=== PATIENT | female | born 1970 ===

== ENCOUNTER 2017-06-14 14:09 | Emergency (ER) | payer OTHER ==
[2017-06-14 14:43] VITALS: BP 153/76
--- NOTE | 2017-06-14 15:02 | UC ---
Complaint Female HPI - HPI Summary HPI Summary: Patient to the urgent care with complaints of urgency frequency burning with urination. Denies fevers chills nausea vomiting - History Of Current Complaint Chief Complaint: [facility]CGU Stated Complaint: URINARY COMPLAINT Time Seen by Provider: 06/14/17 14:40 Hx Obtained From: Patient ?: No - hysterectomy Onset/Duration: Sudden Onset, Lasting Days - 7 Timing: Constant Severity Initially: Mild Severity Currently: Moderate Pain Intensity: 7 Pain Scale Used: 0-10 Numeric Character: Burning Aggravating Factor(s): Urination Alleviating Factor(s): Nothing Associated Signs And Symptoms: Positive: Negative - Allergies/Home Medications Allergies/Adverse Reactions: Allergies Allergy/AdvReac Type Severity Reaction Status Date / Time No Known Allergies Allergy Verified 06/14/17 14:43 Home Medications: Home Medications Acetaminophen TAB* [Tylenol TAB*] 1,500 mg PO Q4H PRN 06/14/17 [History Confirmed 06/14/17] PMH/Surg Hx/FS Hx/Imm Hx Previously Healthy: Yes - Surgical History Surgical History: Yes Surgery Procedure, Year, and Place: Hysterectomy. Gall bladder. Tubes tied - Family History Known Family History: Positive: None - Social History Occupation: Employed Full-time Lives: With Family Alcohol Use: Occasionally Substance Use Type: None Smoking Status (MU): Former Smoker When Did the Patient Quit Smoking/Using Tobacco: 2002 Review of Systems Constitutional: Negative Skin: Negative Eyes: Negative ENT: Negative Respiratory: Negative Cardiovascular: Negative Gastrointestinal: Negative Genitourinary: Dysuria, Frequency, Urgency Motor: Negative Neurovascular: Negative Musculoskeletal: Negative Neurological: Negative Psychological: Negative Is Patient Immunocompromised?: No All Other Systems Reviewed And Are Negative: Yes Physical Exam Triage Information Reviewed: Yes Appearance: Well-Appearing, No Pain Distress, Well-Nourished Vital Signs: Initial Vital Signs Temp 98.5 F 06/14/17 14:34 Pulse 80 06/14/17 14:34 Resp 18 06/14/17 14:34 BP 153/76 06/14/17 14:34 Pulse Ox 97 06/14/17 14:34 Vital Signs Reviewed: Yes Eye Exam: Normal Eyes: Positive: Conjunctiva Clear ENT Exam: Normal ENT: Positive: Normal ENT inspection, Hearing grossly normal, TMs normal. Negative: Nasal congestion - I, Trismus, Muffled voice, Hoarse voice Dental Exam: Normal Neck exam: Normal Neck: Positive: Supple, Nontender, No Lymphadenopathy Respiratory Exam: Normal Respiratory: Positive: Chest non-tender, Lungs clear, Normal breath sounds, No respiratory distress, No accessory muscle use Cardiovascular Exam: Normal Cardiovascular: Positive: RRR, No Murmur, Pulses Normal, Brisk Capillary Refill - 1 year Abdominal Exam: Normal Abdomen Description: Positive: Nontender, No Organomegaly, Soft. Negative: CVA Tenderness (R), CVA Tenderness (L) Musculoskeletal Exam: Normal Musculoskeletal: Positive: Strength Intact, ROM Intact, No Edema Neurological Exam: Normal Neurological: Positive: Alert, Muscle Tone Normal Psychological Exam: Normal Skin Exam: Normal Diagnostics - Laboratory Diagnostic Studies Completed/Ordered: UA +3 leukoesterase, +2 blood ,positive nitrate, +3 protein Complaint Female Dx - Course Course Of Treatment: Increase fluids, cranberry juice can be helpful, Bactrim & Pyridium, follow with PCP when necessary, to the emergency department for increasing pain fevers chills nausea vomiting back pain - Differential Dx/Diagnosis Provider Diagnoses: UTI Discharge - Sign-Out/Discharge Documenting (check all that apply): Discharge/Admit/Transfer - Discharge Plan Condition: Stable Disposition: HOME Prescriptions: Phenazopyridine TAB* [Pyridium 100 mg TAB*] 100 mg PO TID PRN #9 tab PRN Reason: urinary pain and burning Sulfamethox/Trimethoprim DS* [Bactrim DS 800/160 TAB*] 1 tab PO BID 5 Days #10 tab Patient Education Materials: Phenazopyridine (By mouth), Urinary Tract Infection in Women (ED), Hypertension (ED) Forms: *Work Release Referrals: [facility] [Outside] - 2 Weeks - Billing Disposition and Condition Condition: STABLE Disposition: HOME
== END 2017-06-14 15:14 | disposition home or self-care (01) ==
LOC: UCCORT 14:09
DX: N39.0 Urinary tract infection, site not specified (principal); Z87.891 Personal history of nicotine dependence
CPT/HCPCS: 81003; 87077; 87086; 87186; 99202; G0463